=== PATIENT | female | born 1955 | race Two or more races ===

== ENCOUNTER 2018-07-29 15:27 | Outpatient (CLI) | payer OTHER | END 2018-07-29 15:38 | disposition home or self-care (01) | LOC: RAD 501 15:27 | DX: M79.604 Pain in right leg (principal); M25.571 Pain in right ankle and joints of right foot; M25.551 Pain in right hip ==

== ENCOUNTER 2018-08-12 13:17 | Outpatient (CLI) | payer OTHER | END 2018-08-12 13:28 | disposition home or self-care (01) | LOC: RAD 501 13:17 | DX: M21.751 Unequal limb length (acquired), right femur (principal) ==

== ENCOUNTER 2019-01-29 14:09 | Emergency (ER) | payer OTHER ==
[~2019-01-29] VITALS: Ht 160 cm; Wt 74.8 kg
[2019-01-29] MEDS ORDERED: SYNTHROID50 MCG (15:32)
== END 2019-01-29 18:54 | disposition home or self-care (01) ==
LOC: ER 14:09
DX: S50.812A Abrasion of left forearm, initial encounter (principal); L03.114 Cellulitis of left upper limb; W18.39XA Other fall on same level, initial encounter; Y93.89 Activity, other specified; Y92.89 Other specified places as the place of occurrence of the external cause; Y99.8 Other external cause status

== ENCOUNTER 2019-06-09 13:41 | Outpatient (CLI) | payer OTHER ==
[~2019-06-09 13:41] MED LIST: SYNTHROID50 MCG
== END 2019-06-09 13:43 | disposition home or self-care (01) ==
LOC: NUCLEAR 13:41
DX: M81.0 Age-related osteoporosis without current pathological fracture (principal)

== ENCOUNTER 2020-02-11 17:34 | Emergency (ER) | payer OTHER ==
[~2020-02-11] VITALS: Ht 162.6 cm; Wt 73.0 kg
== END 2020-02-11 20:37 | disposition home or self-care (01) ==
LOC: ER 17:34
DX: S01.02XA Laceration with foreign body of scalp, initial encounter (principal); V49.9XXA Car occupant (driver) (passenger) injured in unspecified traffic accident, initial encounter; Y93.89 Activity, other specified; Y92.488 Other paved roadways as the place of occurrence of the external cause; Y99.8 Other external cause status